=== PATIENT | male | born 2005 | race Caucasian/White ===

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

== ENCOUNTER 2025-01-20 09:30 | Emergency (ER) | payer OTHER, BC, SELFPAY ==
[2025-01-20 09:43] VITALS: BP 131/77; PULSE 87; RESP 16; TEMP 36.2; O2SAT 99
--- NOTE | 2025-01-20 09:58 | ED.WOUNDLAC ---
HPI - Wound/Laceration General Chief Complaint: Wound/Laceration Stated Complaint: Laceration to Finger Time Seen by Provider: 01/20/25 09:58 Source: patient Mode of arrival: ambulatory Limitations: no limitations History of Present Illness HPI narrative: 19-year-old male presents with laceration to right thumb. Patient works in a kitchen at [employer]. Cut himself while chopping onions. Has small amount of bleeding on arrival. All systems reviewed and negative except as noted above. Related Data Home Medications ?Medication ?Instructions ?Recorded ?Confirmed ?Last Taken ?Type amlodipine 10 mg tablet mg 08/12/24 Unknown History atomoxetine 80 mg capsule mg PO 08/12/24 Unknown History fluoxetine 20 mg capsule mg 08/12/24 Unknown History ergocalciferol (vitamin D2) 1,250 01/20/25 Unknown History mcg (50,000 unit) capsule Allergies Allergy/AdvReac Type Severity Reaction Status Date / Time No Known Allergies Allergy Verified 01/20/25 09:54 [facility] Past Medical History Medical History Seasonal allergies ADHD Left wrist fracture Asthma Social History Social History Smoking status: Never smoker Alcohol intake: never Substance use: never Living arrangements: with family Occupation/Education: student Gender identity (if verbalized by the patient): Male Comments Reviewed Exam Narrative: GENERAL: This is a well-nourished, well-developed patient, in no apparent distress. HEAD: normocephalic, atraumatic. EYES: PERRL. Sclera clear/white. Vision is grossly intact. EARS: External ears normal NOSE: External nose normal NECK: Neck supple, non-tender without lymphadenopathy, masses or thyromegaly. CARDIOVASCULAR: Regular rate and rhythm without murmurs, gallops, or rubs. RESPIRATORY: Clear to auscultation. Breath sounds equal bilaterally. No wheezes, rales, or rhonchi. SKIN: warm, Dry,with no suspicious lesions or rash, good texture and turgor. 1 cm laceration to distal aspect of right thumb. CMS intact right thumb. NEURO: awake, alert, and oriented to person, place and time. There were no obvious focal neurologic abnormalities. EXTREMITIES: No joint tenderness, effusion, or edema noted. Course Course Level of Care: Express Care Visit Vital Signs Vital signs: Vital Signs Temperature 36.2 C L 01/20/25 09:43 Pulse Rate 87 01/20/25 09:43 Respiratory Rate 16 01/20/25 09:43 Blood Pressure 131/77 01/20/25 09:43 Pulse Oximetry 99 01/20/25 09:43 Oxygen Delivery Room Air 01/20/25 09:43 Temperature 36.2 C L 01/20/25 09:43 Pulse Rate 87 01/20/25 09:43 Respiratory Rate 16 01/20/25 09:43 Blood Pressure 131/77 01/20/25 09:43 Pulse Oximetry 99 01/20/25 09:43 Oxygen Delivery Room Air 01/20/25 09:43 Reviewed Procedures Laceration Laceration 1: Date: 01/20/25 Time: 10:00 Site: hand ( thumb) Side (If applicable): right Size (cm): 1 Description: linear Depth: simple, single layer Local Anesthetic: lidocaine 1% Amount of anesthesia used (mL): 2 ====== Skin Level ====== Skin layer closed with: nylon Size (cm): 4-0 Number of sutures: 3 Technique: simple, interrupted ====== Subcutaneous Layer ====== ====== Muscle Layer ====== ====== Tendon Layer ====== MDM - Wound/Laceration MDM Narrative Medical decision making narrative: laceration to right thumb repaired with sutures. CMS intact pre and postprocedure. Recommend triple antibiotic ointment. Differential Diagnosis Differential diagnosis: Likely laceration Discharge Plan Discharge Clinical Impression: Laceration of right thumb Qualifiers: Encounter type: initial encounter Damage to nail status: without damage Foreign body presence: without foreign body Qualified Code(s): S61.011A - Laceration without foreign body of right thumb without damage to nail, initial encounter Patient Disposition: Home Condition: Stable Instructions: Finger Laceration (ED) Additional Instructions: Keep wound clean and dry. May apply [id number]-[id number]-[id number] triple antibiotic ointment twice a day for 3-5 days. Follow-up in 10 days for suture removal. Patient Language: Croatian Prescriptions: No Action amlodipine 10 mg tablet fluoxetine 20 mg capsule atomoxetine 80 mg capsule PO ergocalciferol (vitamin D2) 1,250 mcg (50,000 unit) capsule Follow-up/Referrals: PHYSICIAN NOT ON STAFF,NONSTAFF [Primary Care Provider] Stand Alone Forms: Work/School Release IP Time of Disposition: 10:21
--- OUTSIDE RECORDS SUMMARY | 2025-01-20 09:59 | XMS_ITS | Clinical Summary ---
Author Organization [facility] Address [address] [place] [address] Care Team Providers Care Joint Cleaning Machine Operator Name Role Phone Jesus Hernándezmelony Peterson DO Unavailable [phone] Virgilio Rubalcava BELLOWS FILLER-BACKUP ENGINEER Primary Care Pro vider Source Comments [facility],non-owned Affiliates and Associated Physician Practices is amultiple site organization consisting of ambulatory clinics and hospital sitesin [place], [place], [place] and [place]. This disclosure is being madepursuant to the Care Everywhere program and may not contain all information available regarding this patient. Last updated 18.[facility] Allergies Active Allergy Reactions Criticality Noted Date Comments Dust Mite Extract High 12/12/2015 Pollen Extract Itching,Rhinitis,Rachael rtness of Breath High 08/12/2014 Sesame Oil High 12/12/2015 Shellfish Allergy High 12/12/2015 Tree Extract Other 07/22/2024 Medications * Be aware that medications may not be up to date on this document. Alwaysverify current medications with the patient. cetirizine (ZYRTEC) 10 MG tablet Take 1 (one) tablet by mouth once daily Active FLUoxetine (PROZAC) 20 MG capsule Take 1 (one) capsule by mouth once daily Takes with 10 mg for total 30 mg daily 7 Active atomoxetine (STRATTERA) 80 MG capsule 1 (one) capsule every morning 1 Active acetaminophen (TYLENOL) 325 MG tablet Take 2 (two) tablets by mouth every 6 hours as needed 1 Active FLUoxetine (PROZAC) 10 MG capsule Take 1 (one) capsule by mouth once daily 2 Active albuterol HFA (PROVENTIL; VENTOLIN; PROAIR) 108 (90 Base) MCG/ACT inhaler Inhale 2 (two) puffs by mouth every 4 hours as needed 2 Active labetalol (Normodyne; Trandate) 200 MG tablet TAKE 1 TABLET BY MOUTH TWICE DAILY WITH HALF OF A 100 MG TABLET FOR A TOTAL DOSE OF 250 MG TWICE DAILY 60 tablet 3 3 Active fluticasone propionate (Flonase) 50 MCG/ACT nasal spray [place] 2 (two) sprays into each nostril once daily as needed 2 Active amLODIPine (Norvasc) 10 MG tablet Take 1 tablet by mouth once daily 30 tablet 4 3 Active labetalol (Normodyne; Trandate) 100 MG tablet TAKE 1/2 (ONE-HALF) TABLET BY MOUTH TWICE DAILY ALONG WITH A 200 MG TABLET FOR A TOTAL DAILY DOSE OF 250 MG TWICE DAILY. 30 tablet 2 3 Active diclofenac sodium (Voltaren) 1 % gel Apply 4 (four) g to affected area 4 times daily 4 Active pantoprazole EC (Protonix) 40 MG tablet Take 1 (one) tablet by mouth once daily 5 Active vitamin D, ergocalciferol, (Drisdol) 1.25 MG (88550 UT) capsule Take 1 (one) capsule by mouth every 7 days 5 01/06/20 25 Active Problems Patient Care Coordination No te [...] stable at this time. We plan to marriage counselor him on increasing his fluids. We [...] +12%=147/97]. Assessment & Plan (06/28/2021 3:07 PM WINE MAKER): Perez is a 16 year old male [...] Encounters Date Type Department Care Team Description 11/22/2024 3:30 PM CDT Office Visit [facility] - ENT [address] [place] [phone] Louis Kennedy MD Epistaxis (Primary Dx) 11/22/2024 Travel from Last 3 Months Immunizations Immunization Administration Dates Next Due Covid Pfizer primary monoval ent 12+ yr 0.3mL Purple cap 12/25/2020,12/06/2020 INFLUENZA VACCINE, TRIV. (FL UZONE; FLULAVAL; FLUARIX; AFLURIA TRIVALENT; 6MO+), 0.5 ML (IIV3) 04/19/2024 TD (ADULT), 5 LF TETANUS TOXOID, ADSORBED, PF Family History Medical History Relation Name Comments [...] Recorded Sex Assigned at Not on file Legal Sex Male 5:44 AM WINE MAKER Gender Identity Not on file Sexual Orientation Not on file Last Filed Vital Signs Vital Sign Reading Time Taken Comments Blood Pressure 121/78 11/22/2024 3:22 PM CDT Pulse 81 11/22/2024 3:22 PM CDT Temperature - - Respiratory Rate 18 01/14/2017 8:37 AM CDT Oxygen Saturation 96% 01/14/2017 8:37 AM CDT Inhaled Oxygen Concentration - - Weight 133.3 kg (293 lb 12.8 oz) 11/22/2024 3:22 PM CDT Height 182.9 cm (6') 11/22/2024 3:22 PM CDT Body Mass Index 39.85 11/22/2024 3:22 PM CDT Plan of Treatment Health Maintenance Due Date Last Done Comments HIV SCREENING 2020 HPV VACCINE (1 - Male 3-dose series) 2020 MENINGOCOCCAL (Group B) VACCINE SHARED DECISION-MAKING (1 of 2 - Standard) 2021 HEPATITIS C SCREENING 04/06/2023 COVID-19 VACCINE (3 - 2023-2 5 season) 2024 12/25/2020, 12/06/2020 HEPATITIS B VACCINE (1 of 3 - 19+ 3-dose series) 2024 DEPRESSION SCREENING 06/02/2024 INFLUENZA VACCINE (#1) 2025 04/19/2024 DTAP/TDAP/TD VACCINES (2 - T d or Tdap) 10/13/2034 10/13/2024 ZOSTER VACCINE (1 of 2) 2055 HIB VACCINE Aged Out No longer eligi ble based on patient's age to complete this topic MENINGOCOCCAL GROUPS A/C/Y/W VACCINE Aged Out No longer eligible b ased on patient's age to complete this topic PNEUMOCOCCAL VACCINE Aged Out No long er eligible based on patient's age to complete this topic Procedures Procedure Name Priority Date/Time Associated Diagnosis Comments PROC EPISTAXIS Routine 11/22/2024 9:09 PM CDT Epistaxis from Last 3 Months Results * PROC EPISTAXIS (11/22/2024 9:09 PM CDT) Narrative Louis Kennedy MD - 11/22/2024 9:09 PM CDT Louis Kennedy MD 11/22/2024 9:11 PM Nose examined under microscope vessels found in anterior inferior septum both sides these were treated with silver nitrate. Louis Kennedy MD PROCEDURE/MINOR SURGICAL ORD ERABLES Final Result from Last 3 Months Insurance ANTHEM ANTHEM ANTHEM ANTHEM * Guarantor: OZIEL SALEH Account Type Relation to Patient Date of Phone Billing Address Personal/Family Father Care Teams Joint Cleaning Machine Operator Relationship Specialty Start Date End Date Virgilio Rubalcava, BELLOWS FILLER-BACKUP ENGINEER [address] [phone] PCP - General Nurse Practitioner 11/22/24 Rossy Hernández DO [address] [place] [phone] 12/12/15
--- OUTSIDE RECORDS SUMMARY | 2025-01-20 09:59 | XMS_ITS | Clinical Summary ---
Author Organization [facility] Address [address] [place] [address] Phone Care Team Providers Care Tax Director Name Role Phone Virgilio Rubalcava APRN, MARIELA Primary Care Pr ovider Allergies Active Allergy Reactions Criticality Noted Date Comments Pollen Extract Shortness of Breath, Runny Nose,Itching High 08/12/2014 Shellfish Allergy Runny Nose,Itching,Nausea,Vomiting High 08/12/2014 Medications Diclofenac Sodium (VOLTAREN) 1 % GelIndications:Ch ronic pain of left knee Apply 4 g 4 times daily. Left knee 100 g 11 4 Active FLUoxetine (PROzac) 20 MG CapsuleIndication s:Generalized anxiety disorder TAKE 1 CAPSULE BY MOUTH ONCE DAILY FOR DEPRESSION 90 Capsule 1 5 Active Atomoxetine HCl 80 MG CapsuleIndication s:ADHD (attention deficit hyperactivity disorder), combined type Take 1 capsule by mouth once daily 90 Capsule 1 5 Active acetaminophen (TYLENOL) 325 MG Tablet Take 650 mg by mouth. 1 Active fluticasone (FLONASE) 50 MCG/ACT Suspension 2 Sprays by Nasal route. 2 Active fluticasone (FLONASE) 50 MCG/ACT Suspension 1 [place] by Nasal route daily. Use in each nostril as directed. 16 g 5 Active pantoprazole (PROTONIX) 40 MG Tablet Delayed Response Take 1 Tablet by mouth daily. 30 Tablet 5 Active amLODIPine (NORVASC) 10 MG Tablet Take 1 tablet by mouth once daily 90 Tablet Active labetalol (NORMODYNE) 100 MG Tablet TAKE 1/2 (ONE-HALF) TABLET BY MOUTH ONCE DAILY. TAKE WITH 200 MG TABLET TO TOTAL 250 MG DAILY. 45 Tablet 5 Active labetalol (NORMODYNE) 200 MG Tablet TAKE 1 TABLET BY MOUTH ONCE DAILY ALONG WITH HALF TABLET OF 100 MG TO TOTAL 250 MG DAILY 90 Tablet 5 Active ergocalciferol (VITAMIN D) 49608 UNIT CapsuleIndication s:Vitamin D deficiency Take 1 Capsule by mouth once a week for 12 doses. 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 Encounters Date Type Department Care Team Description 11/21/2024 Refill [facility] [address] [place] [address] Virgilio Rubalcava APRN, CNP Medication Refill 10/21/2024 1:45 PM CDT Office Visit [facility] [address] [place] [address] Virgilio Rubalcava APRN, CNP Laceration of right middle finger without foreign body without damage to nail, subsequent encounter (Primary Dx) Discharge Disposition: Discharged to home or Selfcare 10/21/2024 Travel from Last 3 Months Immunizations Immunization Administration Dates Next Due Covid-19, Mrna, Lnp-s, Pf, 30 Mcg/0.3 Ml Dose (P andriyzer) 12/25/2020,12/06/2020 Td Vaccine (preservative free) 10/13/2024 Family History Medical History Relation Name Comments ADD / ADHD Brother 1 Drug Abuse Brother 1 ADD / ADHD Brother 2 ADD / ADHD Brother 3 ADD / ADHD Brother 4 ADD / ADHD Father Oziel Therese Alcohol Abuse Father Oziel Therese Hypertension Father Oziel Therese Bio Father Heart Attack Maternal Grandfather Mario Pratik High Cholesterol Maternal Grandfather Mario Christie Stroke Maternal Grandfather Mario Christie Osteoarthritis Maternal Grandmother Usha Chuant Bipolar Disorder Mother Hypertension Paternal Aunt Gina Noble Adopted mother Drug Abuse Sister 1 ADD / ADHD Sister 2 Relation Name Status Comments Brother 1 Alive Brother 2 Alive Brother 3 Alive Brother 4 Alive Father Oziel Therese Alive Maternal Grandfather Mario Christie Alive Maternal Grandmother Usha Pratik Alive Mother Alive Paternal Aunt Crystal East Alive Paternal Grandfather Alive Sister 1 Sister 2 Alive Social History Tobacco Use Types Packs/Day Years Used Date Smoking Tobacco: Never Smokeless Tobacco: Current Tobacco Cessation:Ready to Q uit: No; Counseling Given: Yes Comments:Vape Alcohol Use Standard Drinks/Week Comments Never 0 (1 standard drink = 0.6 oz pur e alcohol) [facility] Utilities Answer Date Recorded In the past 12 months has e electric, gas, oil, or water company threatened to shut off services in your home? No 10/10/2024 Social Connection and Isolation Panel Answer Date Recorded In a typical week, how many times do you talk on the phone with family, friends, or neighbors? Once a week 10/10/2024 How often do you get togethe r with friends or relatives? More than three times a week 10/10/2024 How often do you attend chur ch or latter-day services? Never 10/10/2024 Do you belong to any clubs o r organizations such as judaism groups, unions, fraternal or athletic groups, or school groups? No 10/10/2024 How often do you attend meet ings of the clubs or organizations you belong to? Never 10/10/2024 Are you , , di vorced, , never , or living with a partner? Living with partner 10/10/2024 AUDIT-C Answer Date Recorded Q1: How often do you have a drink containing alc ohol? Monthly or less 10/10/2024 Q2: How many drinks containi ng alcohol do you have on a typical day when you are drinking? 1 or 2 10/10/2024 Q3: How often do you have si x or more drinks on one occasion? Never 10/10/2024 Overall Financial Resource Strain (CARDIA) Answe r Date Recorded How hard is it for you to pa y for the very basics like food, housing, medical care, and heating? Not very hard 10/10/2024 PHQ-2 Answer Date Recorded Total Score - Questions 1-9 0 09/30 [facility] Occup[facility] ional [facility] - Occupational Stress Questionnaire Answer Date Recorded Do you feel stress - tense, restless, nervous, or anxious, or unable to sleep at night because your mind is troubled all the time - these days? Very much 10/10/2024 Exercise Vital Sign Answer Date Recorde d On average, how many days pe r week do you engage in moderate to strenuous exercise (like a brisk walk)? 2 days 10/10/2024 On average, how many minutes do you engage in exercise at this level? 10 min 10/10/2024 Hunger Vital Sign Answer Date Recorded Within the past 12 months, y ou worried that your food would run out before you got the money to buy more. Never true 10/11/19 25 Within the past 12 months, t he food you bought just didn't last and you didn't have money to get more. Never true 10/10/2024 PRAPARE - Transportation Answer Date Re corded In the past 12 months, has l ack of transportation kept you from medical appointments or from getting medications? No 09/30 In the past 12 months, has l ack of transportation kept you from meetings, work, or from getting things needed for daily living? No 10/10/2024 Housing Stability Vital Sign Answer Nicholas e Recorded In the last 12 months, was t here a time when you were not able to pay the mortgage or rent on time? No 10/10/2024 In the past 12 months, how m any times have you moved where you were living? 0 10/10/2024 At any time in the past 12 m [facility], were you homeless or living in a long-term (including now)? No 10/10/2024 Sexually Active Control Partners Comments Yes Patch Female Sex and Gender Information Value Date Recorded Sex Assigned at Male 08/31/2023 4:05 PM CDT Legal Sex Male 4:11 PM CDT Gender Identity Not on file Sexual Orientation Straight 08/31/2023 4: 05 PM CDT Last Filed Vital Signs Vital Sign Reading Time Taken Comments Blood Pressure 124/62 10/21/2024 1:35 PM CDT Pulse 94 10/21/2024 1:35 PM CDT Temperature 36.2 C (97.2 F) 10/21/2024 1:35 PM CDT Respiratory Rate 16 10/21/2024 1:35 PM CDT Oxygen Saturation 97% 10/21/2024 1:35 PM CDT Inhaled Oxygen Concentration - - Weight 133.4 kg (294 lb) 10/21/2024 1:35 PM CDT Height 182.9 cm (6') 10/21/2024 1:35 PM CDT Body Mass Index 39.87 10/21/2024 1:35 PM CDT Plan of Treatment Upcoming Encounters Date Type Department Care Team (Late st Contact Info) Description 03/16/2025 1:30 PM CDT [facility] [address] [place] [address] Virgilio Rubalcava, VALE, GRAPHIC SPECIALIST #[address] [address] Nnamdi Rose MD [address] [phone] 04/25/2025 1:30 PM LEAD HOUSEKEEPER Office Visit [facility] - Family [facility] [address] [place] [address] Virgilio Rubalcava APRN, GRAPHIC SPECIALIST #[address] [address] Health Maintenance Due Date Last Done Comments Hepatitis C Virus (HCV) Screening 2005 TdaP Immunization 2005 Human Papillomavirus (HPV) Immunization (1 - Male 3-dose series) 2020 Meningococcal B Immunization (1 of 2 - Standard) 2021 SARS-COV-2 Immunization (3 - 2023- season) 2024 12/25/2020, 12/06/2020 Hepatitis B Immunization (1 of 3 - 19+ 3-dose series) 2024 Influenza Immunization (#1) 2025 04/19/2024 Respiratory Syncytial Virus (RSV) Immunization (Adult) (1 - 1-dose 75+ series) 2080 DTaP/Tdap/Td Immunization Discontinued 10/13/2024 Meningococcal Immunization (ACWY) Aged Out No longer eligible based on patient's age to complete this topic Pneumococcal Immunization Combined Aged Out No longer eligible based on patient's age to complete this topic Rotavirus Immunization Aged Out No lo nger eligible based on patient's age to complete this topic Goals Goal Patient Goal Type Associated Problems Recent Progress Patient-Stated? Author Patient to report an improvement with anxious symptoms Behavioral Health On track( 5:03 PM LEAD HOUSEKEEPER) No Bibi Woodard LCSW Patient to report improved coping skills Behavioral Health On track( 021 5:03 PM LEAD HOUSEKEEPER) No Bibi Woodard LCSW Note: Goal Reviewed with: patient Readiness to change: Thinking about making a change Department associated with goal: [facility] Steps to achieve goal: [...] and/or group therapy at least 1x/month Insurance [employer] [facility] Care Teams Tax Director Relationship Specialty Start Date End Date Virgilio Rubalcava APRN, GRAPHIC SPECIALIST #[address] [address] PCP - General Advanced Practice Nurse 03/03/23
== END 2025-01-20 10:25 | disposition home or self-care (01) ==
PROVIDERS: Emergency Provider Nurse Practitioner Family
DX: S61.011A Laceration without foreign body of right thumb without damage to nail, initial encounter (principal); W45.8XXA Other foreign body or object entering through skin, initial encounter; Y93.G9 Activity, other involving cooking and grilling; Y99.0 Civilian activity done for income or pay; F90.9 Attention-deficit hyperactivity disorder, unspecified type; J45.909 Unspecified asthma, uncomplicated
CPT/HCPCS: 12001; 99212; G0463; J2003